=== PATIENT | male | born 1970 | race African-American/Black ===

== ENCOUNTER 2016-05-22 23:42 | Emergency (ER) | payer OTHER ==
[~2016-05-22] VITALS: Ht 182.9 cm; Wt 159.5 kg
[~2016-05-22 23:42] MED LIST: AZIT250T94 PO; CETI10CA PO; NO HOME MEDS; PRED20TA PO
[2016-05-22 23:46] VITALS: Ht 182.9 cm; Wt 159.5 kg
--- NOTE | 2016-05-23 01:31 | ERA ---
ER Documentation Chief Complaint Date/Time DATE: 05/23/16 TIME: 01:30 Chief Complaint chest pain/sob x 1 day HPI The patient is a 45-year-old male, presenting to the ER because of left lower chest and left upper abdomen discomfort that began about 5:30 PM. The pain is 5 /10, worse with walking and movement and deep breathing. He denies similar symptoms previously. He denies chest pain associated with vomiting or diaphoresis on exertion. He denies fever, chills, nausea, vomiting, dysuria, diarrhea. He does not smoke, drinks socially, denies any illicit drug Past medical history: Chronic low back pain, history of right bundle branch block, dyslipidemia Past surgical history: None ROS All systems reviewed and are negative except as per history of present illness. Medications Home Meds Active Scripts Azithromycin* (Zithromax*) 250 Mg Tablet, 250 MG PO .ZPACK DIRECTED, #6 TAB TAKE 500 MG (2 TABS) THE FIRST DAY THEN 250 MG (1 TAB) DAYS 2-5 Prov:ALEKSANDR LOREDO MD 02/23/16 Cetirizine Hcl* (Zyrtec*) 10 Mg Capsule, 10 MG PO DAILY, #20 TAB.CHEW Prov:ALEKSANDR LOREDO MD 02/23/16 Prednisone* (Prednisone*) 20 Mg Tab, 40 MG PO DAILY for 4 Days, TAB Prov:ALEKSANDR LOREDO MD 02/23/16 Reported Medications [No Home Meds] No Conflict Check 02/02/11 Allergies Allergies: Coded Allergies: No Known Drug Allergies (Verified Allergy, Unknown, 05/22/16) Uncoded Allergies: NO (Allergy, Unknown, 05/22/16) PMhx/Soc History of Surgery: Yes (CYST IN NECK) Anesthesia Reaction: No Hx Neurological Disorder: No Hx Respiratory Disorders: No Hx Cardiac Disorders: No Hx Psychiatric Problems: No Hx Miscellaneous Medical Probl: Yes (SCIATICA) Hx Alcohol Use: Yes (OOC) Hx Substance Use: No Hx Tobacco Use: No Smoking Status: Never smoker Physical Exam Vitals Vital Signs Date Time Temp Pulse Resp B/P Pulse Ox O2 Delivery O2 Flow Rate FiO2 05/23/16 02:28 155/90 05/23/16 01:20 90 16 162/105 99 Room Air 05/22/16 23:46 99.8 101 20 188/97 99 Physical Exam Const: No acute distress. Head: Atraumatic. Eyes: Normal Conjunctiva. ENT: Normal External Ears, Nose and Mouth. Neck: Full range of motion. No meningismus. Resp: Clear to auscultation bilaterally. Cardio: Regular rate and rhythm, no murmurs. Mild left lower chest tender on palpation, no erythema, no crepitus Abd: Soft, non distended, normal bowel sounds, non tender. Skin: No petechiae or rashes. Back: No midline or flank tenderness. Ext: No cyanosis, or edema. Neur: Awake and alert. No focal deficit Psych: Normal Mood and Affect. Result Diagram: 05/23/1612605/23/167 Results 24 hrs Laboratory Tests Test 05/23/16 01:27 Activated Partial Thromboplast Time 25.3Sec Alanine Aminotransferase (ALT/SGPT) 83IU/L Albumin 4.3g/dl Albumin/Globulin Ratio 1.30 Alkaline Phosphatase 64IU/L Anion Gap 17 Aspartate Amino Transf (AST/SGOT) 64IU/L Basophils # 0.110^3/ul Basophils % 0.6% Blood Morphology Comment Blood Urea Nitrogen 12mg/dl Calcium Level 9.0mg/dl Carbon Dioxide Level 30mmol/L Chloride Level 99mmol/L Creatinine 1.07mg/dl D-Dimer 265.84ng/ml D-Dimer Comment Direct Bilirubin 0.00mg/dl Eosinophils # 0.310^3/ul Eosinophils % 2.7% Ethyl Alcohol Level mg/dl Globulin 3.30g/dl Glucose Level 82mg/dl Hematocrit 44.8% Hemoglobin 14.7g/dl INR International Normalized Ratio 0.92 Indirect Bilirubin 0.3mg/dl Lipase 77U/L Lymphocytes # 3.110^3/ul Lymphocytes % 33.5% Mean Corpuscular Hemoglobin 27.1pg Mean Corpuscular Hemoglobin Concent 32.9g/dl Mean Corpuscular Volume 82.4fl Mean Platelet Volume 8.1fl Monocytes # 1.010^3/ul Monocytes % 11.3% Neutrophils # 4.810^3/ul Neutrophils % 51.9% Nucleated Red Blood Cells # 0.010^3/ul Nucleated Red Blood Cells % 0.0/100WBC Platelet Count 29394^3/UL Potassium Level 4.0mmol/L Prothrombin Time 12.4Sec Prothrombin Time Ratio 1.0 Red Blood Count 5.4410^6/ul Red Cell Distribution Width 15.3% Sodium Level 142mmol/L Total Bilirubin 0.3mg/dl Total Protein 7.6g/dl Troponin I < 0.012ng/ml White Blood Count 9.210^3/ul Current Medications Medications (Trade) Dose Ordered Sig/Albin Route PRN Reason Start Time Stop Time Status Last Admin Dose Admin Ketorolac Tromethamine (Toradol) 30 mg ONCE STAT IV 05/23/16 01:37 05/23/16 01:40 DC 05/23/16 01:45 Procedures/MDM [place] [id number] Radiology Main Line: [phone] DIAGNOSTIC IMAGING REPORT Patient: PEACE CACERES : 1970 Age: 45 Sex: M MR #: [id number] DOS: 05/23/16 0137 Ordering MD: NUSRAT JAMES MD Location: E/R Room/Bed: PROCEDURE: Chest. CLINICAL INDICATION: Chest pain. TECHNIQUE: Single frontal view of the chest was obtained. COMPARISON: 09/14/2012. FINDINGS: The cardiac silhouette is magnified. The aortic arch is unremarkable. There is no focal consolidation, vascular congestion or pleural effusion. There is no pneumothorax. IMPRESSION: No evidence for active cardiopulmonary disease. .Marv Biggs MD, MD Date Time Electronically viewed and signed by .Marv Biggs MD, on 05/23/2016 02:07 .T/ CC: NUSRAT JAMES MD EKG: Read by emergency physician at 11:52 PM Rate/Rhythm: Sinus tachycardia 102 beats per min QRS, ST, T-waves: No ST elevation, no T wave inversion, right bundle branch block Impression: Abnormal EKG EKG: Read by emergency physician at 1:54 AM Rate/Rhythm: Normal sinus rhythm 90 beats per min QRS, ST, T-waves: No ST elevation, no T wave inversion, right bundle branch block Impression: Abnormal EKG MEDICAL MAKING DECISION: The patient is a 45-year-old male, presenting with acute chest pain of unclear etiology, most likely acute musculoskeletal pain. He was treated with Toradol 30 mg IV for pain with good response. The differential diagnoses considered include but are not limited to acute coronary syndrome, acute myocardial infarction, pericarditis, pulmonary embolism, aortic dissection, pneumonia, pleural effusion, pneumothorax, GERD, chest wall pain. Departure Diagnosis: Primary Impression: Chest pain Condition: Good Comments He was discharged with Mal and kassie I discussed the findings with the patient. I advised the patient to follow-up with the primary physician in about 1-2 days, sooner if needed and return if any concern. The patient's blood pressure was elevated (>120/80) but appears stable without evidence of hypertension emergency or urgency. The patient was counseled about the risks of hypertension and urged to pursue outpatient monitoring and therapy within a week with their primary care physician. NUSRAT JAMES MD May 23, 2016 01:30
[2016-05-23] MEDS ORDERED: KETOROLAC 30 MG INJ IV STA (01:37)
[2016-05-23 02:04] LABS: ALBUMIN 4.3 g/dl (3.3-4.9); BASOPHIL # 0.1 10^3/ul (0.0-0.1); BASOPHILS % 0.6 % (0.0-2.0); EOSINOPHILS # 0.3 10^3/ul (0.0-0.5); EOSINOPHILS % 2.7 % (0.0-7.0); HEMATOCRIT 44.8 % (42.0-52.0); HEMOGLOBIN 14.7 g/dl (14.0-18.0); LYMPHOCYTES # 3.1 10^3/ul (0.8-2.9); LYMPHOCYTES % 33.5 % (15.0-51.0); MEAN CORPUSCULAR HEMOGLOBIN 27.1 pg (29.0-33.0); MEAN CORPUSCULAR HGB CONC 32.9 g/dl (32.0-37.0); MEAN CORPUSCULAR VOLUME 82.4 fl (82.0-101.0); MEAN PLATELET VOLUME 8.1 fl (7.4-10.4); MONOCYTES % 11.3 % (0.0-11.0); NEUTROPHIL # 4.8 10^3/ul (1.6-7.5); NEUTROPHILS % 51.9 % (39.0-77.0); PLATELET COUNT 301 10^3/UL (140-440); RED BLOOD COUNT 5.44 10^6/ul (4.70-6.10); RED CELL DISTRIBUTION WIDTH 15.3 % (11.5-14.5); UNCORRECTED WBC 9.2 10^3/ul (4.8-10.8); WHITE BLOOD COUNT 9.2 10^3/ul (4.8-10.8)
[2016-05-23 02:05] LABS: CHLORIDE 99 mmol/L (97-110); INR 0.92; PARTIAL THROMBOPLASTIN TIME 25.3 Sec (25.0-35.0); PROTIME 12.4 Sec (12.2-14.2); SODIUM 142 mmol/L (135-144)
[2016-05-23 02:07] LABS: ALANINE AMINOTRANSFERASE 83 IU/L (13-69); ALKALINE PHOSPHATASE 64 IU/L (42-121); ANION GAP 17 (8-16); ASPARTATE AMINO TRANSFERASE 64 IU/L (15-46); BILIRUBIN,INDIRECT 0.3 mg/dl (0-1.1); BILIRUBIN,TOTAL 0.3 mg/dl (0.2-1.3); BLOOD UREA NITROGEN 12 mg/dl (7-20); CARBON DIOXIDE 30 mmol/L (21-31); CREATININE 1.07 mg/dl (0.61-1.24); GLUCOSE 82 mg/dl (70-220); TOTAL PROTEIN 7.6 g/dl (6.1-8.1)
--- NOTE | 2016-05-23 02:07 | RADRPT ---
PROCEDURE: Chest. CLINICAL INDICATION: Chest pain. TECHNIQUE: Single frontal view of the chest was obtained. COMPARISON: 09/14/2012. FINDINGS: The cardiac silhouette is magnified. The aortic arch is unremarkable. There is no focal consolidat ion, vascular congestion or pleural effusion. There is no pneumothorax. IMPRESSION: No evidence for active cardiopulmonary disease. .Marv Biggs MD, MD Date Time Electronically viewed and signed by .Marv Biggs MD, on 05/23/2016 02:07 .T/
[2016-05-23 02:08] LABS: D-DIMER 265.84 ng/ml (<460)
[2016-05-23 02:19] LABS: CONDITION 1; LH ANALYZER COMMENTS 1
[2016-05-23 02:31] LABS: TROPONIN-I < 0.012 ng/ml (0.00-0.12)
[2016-05-23 04:37] LABS: BARBITURATES Negative (NEGATIVE); BENZODIAZEPINES Negative (NEGATIVE)
[2016-05-23] MEDS ORDERED: IBUP-1542 PO (04:38)
[2016-05-23] MEDS ORDERED: CARI350T PO (04:39)
[2016-05-23 04:41] LABS: CANNABINOIDS Negative (NEGATIVE); COCAINE Negative (NEGATIVE); OPIATES Negative (NEGATIVE)
[2016-05-23 04:59] VITALS: BP 124/63; PULSE 85; RESP 18
== END 2016-05-23 05:15 | disposition home or self-care (01) ==
LOC: E/R 23:42
DX: R07.9 Chest pain, unspecified (principal); R40.2142 Coma scale, eyes open, spontaneous, at arrival to emergency department; R40.2362 Coma scale, best motor response, obeys commands, at arrival to emergency department; R40.2252 Coma scale, best verbal response, oriented, at arrival to emergency department
CPT/HCPCS: 71010; 80053; 80306; 80307; 83690; 84484; 85025; 85378; 85610; 85730; 93005; J1885; 36415; 96374

== ENCOUNTER 2017-09-19 21:51 | Emergency (ER) | END 2017-09-20 02:55 | disposition home or self-care (01) ==

== ENCOUNTER 2018-01-12 15:20 | Emergency (ER) | END 2018-01-12 19:27 | disposition home or self-care (01) ==

== ENCOUNTER 2018-02-01 18:42 | Emergency (ER) | END 2018-02-01 21:11 | disposition home or self-care (01) ==